=== PATIENT | male | born 1945 | race Caucasian/White ===

== ENCOUNTER 2019-12-02 07:27 | Day surgery (SDC) | payer OTHER ==
[2019-12-01 11:39] VITALS: BMI 22.4
--- NOTE | 2019-12-02 08:35 | HP ---
History & Physical Update - History History: No Change - Physical Physical: No Change - Assessment Assessment: No Change - Plan Plan: No Change
--- NOTE | 2019-12-02 08:37 | OP ---
Operative Note - Note: Operative Date: 12/02/19 Operation: prostate cryoablation and cystoscopy Findings: prostate ca Post-Operative Diagnosis: Same as Pre-op Surgeon: Pacheco Garay Anesthesiologist/CENTRAL [employer] TECHNICIAN: Germania Kim Anesthesia: General Estimated Blood Loss (mls): 0 Drains & Tubes with Location: 18 fr barry Operative Report Dictated: Yes
[2019-12-02] MEDS ORDERED: MIDAZOLAM HCL 2 MG/2 ML SINGLE DOSE VIAL ONE (08:55)
[2019-12-02] MEDS ORDERED: BACITRACIN 15 GM TUBE TOPICAL OINTMENT TP ONE (09:15)
[2019-12-02] MEDS ORDERED: ceFAZolin SODIUM 1 GM VIAL IVPB ONE (09:15)
[2019-12-02] MEDS ORDERED: ONDANSETRON 4 MG/2 ML VIAL IVPUSH PRN (09:48)
[2019-12-02] MEDS ORDERED: oxyCODONE HCL 5 MG TABLET PO PRN (09:48)
[2019-12-02] MEDS ORDERED: BACITRACIN 15 GM TUBE TOPICAL OINTMENT ONE (09:57)
[2019-12-02] MEDS ORDERED: LACTATED RINGERS SOLUTION 1,000 ML IV SCH (10:00)
[2019-12-02] MEDS ORDERED: MEPERIDINE HCL 25 MG/ML VIAL ONE (11:03)
[2019-12-02] MEDS ORDERED: MEPERIDINE HCL CARPU-JECT 25 MG/1 ML DISP.SYRIN IVPUSH ONE (11:05)
[2019-12-02 12:42] VITALS: TEMP 98.1
--- NOTE | 2019-12-02 13:16 | OP ---
DATE OF OPERATION: 12/02/2019 PREOPERATIVE DIAGNOSIS: Prostate cancer. POSTOPERATIVE DIAGNOSIS: Prostate cancer. PROCEDURE: Prostate cryoablation and cystoscopy. SURGEON: Pacheco Lama MD MARKETING ASSISTANT RETAIL DIVISION: None. ANESTHESIA: General via laryngeal mask. ANESTHESIOLOGIST: Germania Kim MD SPECIMENS: None. CULTURES: None. DRAINS: An 18-Cam[place]onian Hopkins catheter. ESTIMATED BLOOD LOSS: Negligible. COMPLICATIONS: None. DESCRIPTION OF PROCEDURE: Patient was brought in the operating room. Placed on the operating room table in a supine position. After administration of general anesthesia via laryngeal mask, intravenous antibiotics were administered. Sequential compression devices were placed. Patient was placed in a dorsal lithotomy position. Perineum was shaved 1st, and perineum and genitals were prepped and draped in usual sterile manner, 18-Cam[place] Hopkins catheter was placed per urethra, 10 mL was placed in the balloon. Urine was evacuated. The bladder was then filled with 400 mL of sterile normal saline and clamped. Transrectal ultrasound probe was placed per rectum, and transurethral ultrasound of the prostate was done, and measurements were taken, and a plan was devised for a prostate cryoablation 6 probes. Once the plan was devised, the probes were placed in the appropriate location then 2 temperature sensors were placed, 1 in [place]villiers fascia, 1 in the external sphincter. Now Hopkins catheter was removed. Flexible cystoscopy was performed. This demonstrated normal anterior urethra. Prostatic urethra measured approximately 4-1/2 cm in length and demonstrated moderate bilobar occlusion. There were no probes penetrated in the prostatic urethra. The bladder was entered and thoroughly inspected. There were no foreign bodies, tumors, stones, or inflammation. Both ureteral orifices were in their usual location with a clear efflux bilaterally. No probes penetrated the bladder as well. The scope was retroflexed, and this was confirmed. Now Super Stiff guidewire was passed through the cystoscope into the bladder, and the cystoscope was removed. The urethral warmer was passed over the Super Stiff guidewire into the bladder, and urethral warming was started. The guidewire was removed, and under ultrasound guidance, the positioning of the probes was re-confirmed to be in good position. Now the prostate cryoablation was done with 2 freeze/thaw cycles. At the end of the procedure, temperature sensors and cryoablation probes were removed. Applying digital pressure on the perineum, hemostasis was assured. Urethral warmer was left in place an additional 5 minutes, and the urethral warmer was removed, and an 18-Cam[place]onian Hopkins catheter was replaced, 10 mL placed in the balloon. Placed on gravity drainage. Returned blood tinged. Patient tolerated procedure well, was awoken from anesthesia in the operating room. Sterile compressive dressing was applied consisting of bacitracin, 4 x 4, and Tegaderm. PACHECO LAMA M.D. [id number]
[2019-12-02] MEDS ORDERED: ROCURONIUM BROMIDE 50 MG/5 ML SYRINGE ONE (14:06)
[2019-12-02] MEDS ORDERED: PROPOFOL 20 ML ONE (14:06)
[2019-12-02 14:41] VITALS: BP 135/73; PULSE 83
== END 2019-12-02 13:45 | disposition home or self-care (01) ==
LOC: JASU-SURG 07:27
PROVIDERS: ATTEND Urology
PROC: 0V503ZZ Destruction of Prostate, Percutaneous Approach (ICD-10-PCS; principal; 2019-12-02 09:30)
DX: C61 Malignant neoplasm of prostate (principal)
CPT/HCPCS: 55873; C2618; 94760